=== PATIENT | female | born 1980 ===

== ENCOUNTER 2017-08-03 18:33 | Inpatient (IN) | payer OTHER ==
[~2017-08-03] VITALS: Ht 152.4 cm; Wt 70.8 kg
[2017-08-03] MEDS ORDERED: PRENATAL TABLE1 EAC1 PO (23:09)
[2017-08-07] MEDS ORDERED: CEFTIN PO (11:37)
[2017-08-07] MEDS ORDERED: NIFEDIPINE ER30 MG PO (11:37)
== END 2017-08-07 12:10 | DRG 778 ==
LOC: LDR 18:33 → OB/GYN 08-04 10:27
PROC: 4A1HXCZ Monitoring of Products of Conception, Cardiac Rate, External Approach (ICD-10-PCS; principal; 2017-08-03)
DX: O60.03 Preterm labor without delivery, third trimester (principal); Z3A.33 33 weeks gestation of pregnancy; R82.71 Bacteriuria

== ENCOUNTER 2017-09-08 05:48 | Inpatient (IN) | payer OTHER ==
[~2017-09-08] VITALS: Ht 152.4 cm; Wt 69.4 kg
[~2017-09-08 05:48] MED LIST: CEFTIN PO; NIFEDIPINE ER30 MG PO; PRENATAL TABLE1 EAC1 PO
== END 2017-09-10 12:47 | disposition home or self-care (01) | DRG 775 ==
LOC: LDR 05:48 → OB/GYN 19:06
PROC: 0HQ9XZZ Repair Perineum Skin, External Approach (ICD-10-PCS; principal; 2017-09-08)
PROC: 0UQC0ZZ Repair Cervix, Open Approach (ICD-10-PCS; 2017-09-08)
PROC: 10E0XZZ Delivery of Products of Conception, External Approach (ICD-10-PCS; 2017-09-08)
PROC: 4A0HXCZ Measurement of Products of Conception, Cardiac Rate, External Approach (ICD-10-PCS; 2017-09-08)
PROC: 4A033R1 Measurement of Arterial Saturation, Peripheral, Percutaneous Approach (ICD-10-PCS; 2017-09-08)
DX: O70.0 First degree perineal laceration during delivery (principal); O71.3 Obstetric laceration of cervix; Z37.0 Single live birth; O24.419 Gestational diabetes mellitus in pregnancy, unspecified control; Z3A.38 38 weeks gestation of pregnancy